=== PATIENT | female | born 1955 | race American Indian/Alaskan Native ===

== ENCOUNTER 2016-09-27 18:55 | Emergency (ER) | payer SELFPAY ==
[2016-09-27 19:35] VITALS: BP 148/107
[2016-09-27 20:29] LABS: Basophils % (Auto) 0.4 % (0.0-1.8); Eosinophils % (Auto) 0.8 % (0.0-4.3); Hematocrit 39.5 % (30.3-42.9); Hemoglobin 12.8 gm/dl (10.1-14.3); Mean Corpuscular HGB Conc 33 % (30-34); Mean Corpuscular Hemoglobin 28 pg (28-32); Mean Corpuscular Volume 87 fl (79-97); Platelet Count 292 K/mm3 (140-440); Red Blood Count 4.55 M/mm3 (3.65-5.03); White Blood Count 9.2 K/mm3 (4.5-11.0)
[2016-09-27 20:35] LABS: Albumin 4.4 g/dL (3.9-5); Bilirubin,Total 0.5 mg/dL (0.1-1.2); Calcium 9.2 mg/dL (8.4-10.2); Chloride 97.3 mmol/L (98-107); Potassium 3.7 mmol/L (3.6-5.0); Total Protein 8.6 g/dL (6.3-8.2)
[2016-09-27 20:58] LABS: Bilirubin,Urine NEG (Negative); Blood,Urine SM (Negative); Ketones,Urine NEG (Negative); Leukocyte Esterase,Urine NEG (Negative); Mucus,Urine FEW /HPF; Nitrite,Urine NEG (Negative); Protein,Urine <15 mg/dL mg/dL (Negative); Urobilinogen,Urine < 2.0 mg/dL (<2.0)
--- NOTE | 2016-09-28 15:18 | ED Elopement Review ---
ED Pt Elopement review - Results review Lab results: Laboratory Tests 09/27/16 09/27/16 09/27/16 19:50 19:50 20:37 WBC 9.2 RBC 4.55 Hgb 12.8 Hct 39.5 MCV 87 MCH 28 MCHC 33 RDW 15.0 Plt Count 292 Lymph % (Auto) 33.7 [place] % (Auto) 6.6 Eos % (Auto) 0.8 Baso % (Auto) 0.4 Lymph # 3.1 [place] # 0.6 Eos # 0.1 Baso # 0.0 Seg Neutrophils % 58.5 Seg Neutrophils # 5.4 Sodium 138 Potassium 3.7 Chloride 97.3 L Carbon Dioxide 27 Anion Gap 17 BUN 15 Creatinine 1.0 Estimated GFR 56 BUN/Creatinine Ratio 15.00 Glucose 89 Calcium 9.2 Total Bilirubin 0.5 AST 17 ALT 11 Alkaline Phosphatase 66 Total Protein 8.6 H Albumin 4.4 Albumin/Globulin Ratio 1.0 Lipase 39 Urine Color Yellow Urine Turbidity Clear Urine pH 5.0 Ur Specific [place] 1.012 Urine Protein <15 mg/dl Urine Glucose (UA) Neg Urine Ketones Neg Urine Blood Sm Urine Nitrite Neg Urine Bilirubin Neg Urine Urobilinogen < 2.0 Ur Leukocyte Esterase Neg Urine WBC (Auto) 1.0 Urine RBC (Auto) 1.0 U Epithel Cells (Auto) 4.0 Urine Mucus Few - Call Back decision Pt Call Back Decision: Pt to F/U with PMD
== END 2016-09-28 00:01 | disposition left against medical advice (07) ==
LOC: ED 18:55
DX: R10.9 Unspecified abdominal pain (principal); R19.7 Diarrhea, unspecified; Z88.2 Allergy status to sulfonamides; Z87.891 Personal history of nicotine dependence; Z53.21 Procedure and treatment not carried out due to patient leaving prior to being seen by health care provider
CPT/HCPCS: 36415; 80053; 81001; 83690; 85025